=== PATIENT | male | born 1970 | race Caucasian/White ===

== ENCOUNTER 2018-07-07 18:40 | Emergency (ER) | payer SELFPAY, MEDICAID ==
[~2018-07-07] VITALS: Ht 175.3 cm; Wt 72.6 kg
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
[2018-07-07 19:03] VITALS: BP 145/76
== END 2018-07-07 19:03 | disposition left against medical advice (07) ==
LOC: EMR 18:59
DX: Z02.89 Encounter for other administrative examinations (principal); S00.81XA Abrasion of other part of head, initial encounter; Y04.0XXA Assault by unarmed brawl or fight, initial encounter; Y92.89 Other specified places as the place of occurrence of the external cause; Z53.21 Procedure and treatment not carried out due to patient leaving prior to being seen by health care provider
CPT/HCPCS: 99283